=== PATIENT | male | born 1950 | race African-American/Black ===

== ENCOUNTER 2016-12-06 10:03 | Outpatient (CLI) | payer MEDICARE, BC | END 2016-12-06 10:04 | disposition home or self-care (01) | LOC: NAV LAB 10:03 | PROVIDERS: ATTEND Urology | DX: N40.1 Benign prostatic hyperplasia with lower urinary tract symptoms (principal) | CPT/HCPCS: 36415; G0103 ==

== ENCOUNTER 2017-11-10 23:14 | Emergency (ER) | payer MEDICARE, BC ==
[2017-11-11] LABS: #Eosinphils 0.1 thou/uL (0.0-0.7); #Lymphocytes 0.7 thou/uL (1.20-3.40); #Monocytes 0.4 thou/uL (0.11-0.59); #Neutrophils 3.1 thou/uL (1.40-6.50); %Basophils 1.1 % (0.0-1.0); %Eosinophils 2.6 % (0.0-10.0); %Lymphocytes 16.1 % (21.0-51.0); %Monocytes 9.8 % (0.0-10.0); %Neutrophils 70.4 % (42.0-75.0); Hemoglobin 9.9 g/dL (14.0-18.0); Mean Corpuscular HGB CONC 33.1 g/dL (32.0-36.0); Mean Corpuscular Hemoglobin 29.5 pg (27.0-31.0); Mean Platelet Volume 10.3 fL (7.4-10.4); PLT Morphology Comment Appears Decreased; Platelet Count 91 thou/uL (130-400); RBC Morphology Normal; Red Blood Cell (RBC) Count 3.35 mill/uL (4.70-6.10); White Blood Cell (WBC) Count 4.3 thou/uL (4.8-10.8)
[2017-11-11 00:01] LABS: MDiff Complete? YES; Manual Diff?? NO
[2017-11-11 00:02] LABS: ALT (SGPT) 24 U/L (8-55); AST (SGOT) 24 U/L (5-34); Albumin 3.9 g/dL (3.4-4.8); Alkaline Phosphatase 111 U/L (40-150); Anion Gap 17 mmol/L (10-20); BUN (Urea Nitrogen) 67 mg/dL (8.4-25.7); Bilirubin, Total 0.4 mg/dL (0.2-1.2); CK (CPK) 308 U/L (30-200); Calc. Creatinine Clearance 0 mL/min (70-130); Calcium 7.5 mg/dL (7.8-10.44); Carbon Dioxide 19 mmol/L (23-31); Chloride 112 mmol/L (98-107); Estimated GFR-MDRD 11; Globulin 3.4 g/dL (2.4-3.5); Glucose 122 mg/dL (80-115); Potassium 4.8 mmol/L (3.5-5.1); Protein, Total 7.3 g/dL (5.8-8.1); Sodium 143 mmol/L (136-145)
[2017-11-11 00:07] LABS: CKMB 1.6 ng/mL (0-6.6); Troponin I 0.019 ng/mL (< 0.028)
[2017-11-11] MEDS ORDERED: cloNIDine 0.2 MG TAB ONE (02:32)
[2017-11-11 02:47] LABS: Bilirubin Negative (Negative); Blood, Urine Trace (Negative); Clarity Clear (Clear); Glucose, Urine (Dipstick) Negative (Negative); Leukocyte Negative (Negative); Nitrite Negative (Negative); Protein, Urine (Dipstick) 100 mg/dL (Neg-Trace); Urobilinogen 0.2 mg/dL (0.2-1.0); pH, Urine 5.5 (5.0-9.0)
[2017-11-11 03:41] LABS: Bacteria/HPF None Seen HPF (None Seen); RBC/HPF 0-3 HPF (0-3); Squamous Epithelial 0-3 HPF (0-3); WBC/HPF None Seen HPF (0-3)
--- NOTE | 2017-11-11 07:36 | RAD ---
CHEST 2 VIEWS: HISTORY: Dyspnea. COMPARISON: Chest 1 view 09/07/14. FINDINGS: Heart size is enlarged. Small effusions. Mild pulmonary venous congestion and early edema. IMPRESSION: Findings suggestive of congestive heart failure with cardiomegaly, effusions, and edema. Followup re commended. POS: [facility]
--- NOTE | 2017-11-11 07:54 | CT ---
PRELIMINARY REPORT/[facility]/EMERGENCY AFTER HOURS PROCEDURE: EXAM: CT Chest Without Intravenous Contrast CLINICAL HISTORY: 67 years old, male; Signs and symptoms; Dyspnea TECHNIQUE: Axial computed tomography images of the chest without intravenous contrast. All CT scans at this [facility] use one or more dose reduction techniques, viz.: automated exposure control; ma/kV adjustment pe r patient size (including targeted exams where dose is matched to indication; i.e. head); or iterativ e reconstruction technique. Coronal reformatted images were created and reviewed. COMPARISON: No relevant prior studies available. FINDINGS: Lungs: Patchy poorly defined RIGHT middle and lower lobe groundglass disease areas of subsegmental at electasis in the LEFT lingula. Pleural space: Unremarkable. No pneumothorax. No significant effusion. Heart: Large simple pericardial effusion. Mild cardiomegaly. Innumerable hypodense lesions throughout the liver most consistent with multiple cysts. Bones/joints: Unremarkable. No acute fracture. No dislocation. Soft tissues: Minimal LEFT gynecomastia. Vasculature: Unremarkable. No thoracic aortic aneurysm. Lymph nodes: Unremarkable. No enlarged lymph nodes. IMPRESSION: Large simple appearing pericardial effusion with moderate cardiomegaly. Mild pulmonary venous hypertension. Small RIGHT pleural effusion with right-sided areas of groundglass disease likely representing alveol ar edema. Atypical developing airspace pneumonia can not be ruled out. Multiple hepatic cysts. There are tiny hypodensities which are too small to further characterize on t his examination. Thank you for allowing us to participate in the care of your patient. Dictated and Authenticated by: Jorge Lowe MD 11/11/2017 1:29 AM Central Time ([place] & [place]) FINAL REPORT CT CHEST WITHOUT CONTRAST: HISTORY: Trouble breathing. Cough. Dyspnea. COMPARISON: Radiographs from prior day. FINDINGS: Findings and impression are concordant with the preliminary report. Further evaluation of the liver is recommended with a dedicated liver protocol CT or MRI. POS: [facility]
== END 2017-11-11 02:55 | disposition short-term general hospital (02) ==
LOC: NAV ERS 23:14
DX: I31.9 Disease of pericardium, unspecified (principal); I12.0 Hypertensive chronic kidney disease with stage 5 chronic kidney disease or end stage renal disease; N18.6 End stage renal disease; E11.22 Type 2 diabetes mellitus with diabetic chronic kidney disease; K21.9 Gastro-esophageal reflux disease without esophagitis; E78.5 Hyperlipidemia, unspecified; M06.9 Rheumatoid arthritis, unspecified; M10.9 Gout, unspecified; Z79.82 Long term (current) use of aspirin; Z79.899 Other long term (current) drug therapy
CPT/HCPCS: 36415; 71046; 71250; 80053; 81003; 81015; 82550; 82553; 83880; 84484; 85025; 87040; 87804; 93005

== ENCOUNTER 2022-03-25 08:48 | Outpatient (CLI) | payer MEDICARE, BC | END 2022-03-25 08:49 | disposition home or self-care (01) | LOC: NAV CT 08:48 | PROVIDERS: ATTEND Surgery | DX: K43.2 Incisional hernia without obstruction or gangrene (principal) | CPT/HCPCS: 74176 ==

== ENCOUNTER 2024-05-26 15:55 | Emergency (ER) | payer MEDICARE, BC ==
[2024-05-26 16:42] LABS: #Lymphocytes 0.4 thou/uL (1.20-3.40); #Monocytes 0.4 thou/uL (0.11-0.59); #Neutrophils 2.7 thou/uL (1.40-6.50); %Basophils 0.5 % (0.0-1.0); %Lymphocytes 11.5 % (21.0-51.0); %Monocytes 11.7 % (0.0-10.0); %Neutrophils 76.3 % (42.0-75.0); Hematocrit 34.6 % (42.0-52.0); Hemoglobin 10.5 g/dL (14.0-18.0); Mean Corpuscular HGB CONC 30.4 g/dL (32.0-36.0); Mean Corpuscular Hemoglobin 30.1 pg (27.0-31.0); Mean Corpuscular Volume 99.2 fl (78.0-98.0); Mean Platelet Volume 7.3 fL (7.4-10.4); Platelet Count 177 10x3/uL (130-400); RBC Distribution Width 16.9 % (11.5-14.5); Red Blood Cell (RBC) Count 3.49 mill/uL (4.70-6.10); White Blood Cell (WBC) Count 3.5 10x3/uL (4.8-10.8)
[2024-05-26 16:46] LABS: Bilirubin Negative (Negative); Blood, Urine Large (Negative); Clarity Slightly Cloudy (Clear); Glucose, Urine (Dipstick) Negative (Negative); Ketone, Urine Negative (Negative); Leukocyte Small (Negative); Nitrite Negative (Negative); Protein, Urine (Dipstick) > or equal to 300 mg/dL (Neg-Trace); Urobilinogen 0.2 mg/dL (Less than 2); pH, Urine 6.5 (5.0-9.0)
[2024-05-26 16:53] LABS: Bacteria/HPF 1+ HPF (None Seen); CAUTI Indications for Culture Dysuria,urgency,freq; RBC/HPF Greater than 50 HPF (0-3); Squamous Epithelial None Seen HPF (0-3); WBC/HPF 21-50 HPF (0-3)
[2024-05-26 16:54] LABS: Renal Epithelial None Seen HPF (None Seen); Transitional Epithelial None Seen HPF (None Seen)
[2024-05-26 16:55] LABS: Urine Culture Reflex Yes Yes
[2024-05-26 16:57] LABS: ALT (SGPT) 22 U/L (8-55); AST (SGOT) 23 U/L (5-34); Albumin 3.2 g/dL (3.4-4.8); Alkaline Phosphatase 114 U/L (40-110); Anion Gap 13 mmol/L (10-20); BUN (Urea Nitrogen) 45 mg/dL (8.4-25.7); Bilirubin, Total 0.6 mg/dL (0.2-1.2); Calc. Creatinine Clearance 0 mL/min (70-130); Calcium 9.2 mg/dL (7.8-10.44); Carbon Dioxide 25 mmol/L (23-31); Chloride 105 mmol/L (98-107); Estimated GFR 23; Glucose 97 mg/dL (83-110); Lipase 105 U/L (8-78); Potassium 4.5 mmol/L (3.5-5.1); Protein, Total 6.2 g/dL (5.8-8.1); Sodium 138 mmol/L (136-145)
== END 2024-05-26 17:27 | disposition home or self-care (01) ==
LOC: NAV ERS 15:55
DX: T83.098A Other mechanical complication of other urinary catheter, initial encounter (principal); I10 Essential (primary) hypertension; E11.9 Type 2 diabetes mellitus without complications; E78.00 Pure hypercholesterolemia, unspecified; Z79.899 Other long term (current) drug therapy; Z79.4 Long term (current) use of insulin
CPT/HCPCS: 51702; 51798; 80053; 81001; 83690; 85025; 87086; 99283